=== PATIENT | female | born 1995 | race African-American/Black ===

== ENCOUNTER 2017-09-15 15:20 | Emergency (ER) | payer MEDICARE ==
[~2017-09-15] VITALS: Ht 175.3 cm; Wt 87.0 kg
[2017-09-15 16:45] VITALS: BP 130/72
== END 2017-09-15 17:12 | disposition home or self-care (01) ==
LOC: ER 15:20
DX: S16.1XXA Strain of muscle, fascia and tendon at neck level, initial encounter (principal); Z88.0 Allergy status to penicillin; V49.9XXA Car occupant (driver) (passenger) injured in unspecified traffic accident, initial encounter; Y93.89 Activity, other specified; Y92.89 Other specified places as the place of occurrence of the external cause; Y99.8 Other external cause status
CPT/HCPCS: 99283